=== PATIENT | female | born 1960 | race Asian ===

== ENCOUNTER 2019-01-27 20:36 | Emergency (ER) | payer OTHER ==
[~2019-01-27] VITALS: Ht 160 cm; Wt 74.8 kg
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
[2019-01-27] MEDS: Tetanus/Diptheria/Pertussis IM ONE (21:04)
[2019-01-27] MEDS: HYDROcodone/Acetamin 5/325 tab PO ONE (21:04)
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
[2019-01-27 21:07] VITALS: BP 150/87
[2019-01-27] MEDS ORDERED: TRAMADOL HCL50 MG ORAL (22:57)
[2019-01-27] MEDS ORDERED: IBUPROFEN600 MG ORAL (22:57)
[2019-01-27] MEDS ORDERED: ROBAXIN500 MG PO (22:57)
[2019-01-27 23:05] VITALS: BP 135/76
--- NOTE | 2019-01-27 23:05 | NUR ---
ED Nurse Note: PT CLEARED TO BE D/C PER ERMD, PT DISCHARGE AND AFTERCARE INSTRUCTION PROVIDED W/ PRESCRIPTION, PT EDUCATION DONE VIA DISCUSSION AND HANDOUT, PT ADVISED TO FOLLOW UP WITH PCP OR RETURN TO ED IF CHANGES IN CONDITION, VSS, AMBULATORY W/ STEADY GAIT, LEFT W/ ALL BELONGINGS, PT ACCOMPANIED BY SON.
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
--- NOTE | 2019-01-28 09:45 | Diagnostic Imaging Report ---
Indication: Head trauma headache Technique: Contiguous 5 mm thick transaxial imaging of the head obtained in a Siemens Sensation [address] scanner. Soft tissue and bone windows generated. Automatic Exposure Control was utilized. Total Dose length Product (DLP): 2097.[address] Dose Index Volume (CTDIvol): 70.38,28.19 mGy Comparison: none Findings: The size and configuration of the cortical sulci, basal cisterns, and ventricles are within normal limits for age. There is no mass effect, midline shift, or edema identified. There is no evidence of acute hemorrhage or abnormal intra-axial or extra-axial fluid collections. The bones and soft tissues are unremarkable. Impression: No mass effect, edema or acute bleed. [facility] has communicated the preliminary results to the Emergency Department. Their findings are largely concordant with this report. The CT scanner at [facility] is accredited by the [employer] and the scans are performed using dose optimization techniques as appropriate to a performed exam including Automatic Exposure control.
--- NOTE | 2019-01-28 11:00 | Diagnostic Imaging Report ---
Indication: left shoulder pain Findings: 3 views of the left shoulder were obtained. Alignment of the left shoulder is normal. No acute fracture is identified. Soft tissues are unremarkable. Impression: No acute injury
--- NOTE | 2019-01-28 11:01 | Diagnostic Imaging Report ---
Indication: Left wrist pain Findings: 3 views of the left wrist were obtained. No acute fractures, malalignment, erosions or periostitis are identified. Soft tissues are unremarkable. Impression: No acute findings.
== END 2019-01-27 23:05 | disposition home or self-care (01) ==
LOC: EDBD 20:36 → EMR 21:11
DX: S00.83XA Contusion of other part of head, initial encounter (principal); S60.212A Contusion of left wrist, initial encounter; S40.012A Contusion of left shoulder, initial encounter; V43.62XA Car passenger injured in collision with other type car in traffic accident, initial encounter; Y92.410 Unspecified street and highway as the place of occurrence of the external cause; I10 Essential (primary) hypertension; J32.2 Chronic ethmoidal sinusitis; J32.0 Chronic maxillary sinusitis; Z23 Encounter for immunization
CPT/HCPCS: 70450; 70486; 90471; 90715; 99284